=== PATIENT | female | born 1960 | race Caucasian/White ===

== ENCOUNTER 2018-08-23 18:36 | Emergency (ER) | payer OTHER ==
[~2018-08-23] VITALS: Ht 167 cm; Wt 65.7 kg
[2018-08-23 18:50] VITALS: Ht 167 cm; Wt 65.7 kg
[2018-08-23] MEDS ORDERED: SOD CHLORIDE 0.9% 1,000 ML IV STA (21:48)
[2018-08-23 22:24] VITALS: BP 198/120; PULSE 101; RESP 20
--- NOTE | 2018-08-23 22:55 | ERD ---
ER Documentation Chief Complaint Chief Complaint worsening incontinence x months,not on any meds,HTN@triage HPI This is a 57-year-old female with a history of hypertension who presents to the emergency room for evaluation of urinary incontinence. The patient states that she has had urinary incontinence for the past 3 months. The patient denies any fevers, lower back pain, numbness in the lower extremities or any generalized weakness. She states she came to the ER today for evaluation of her incontinence as it is gotten worse. The patient denies any aggravating or relieving factors for her symptoms and denies seeing a urologist in the past. ROS All systems reviewed and are negative except as per history of present illness. Allergies Allergies: Coded Allergies: No Known Allergy (Unverified , 08/23/18) PMhx/Soc Medical and Surgical Hx: pt denies Surgical Hx History of Surgery: No Anesthesia Reaction: No Hx Neurological Disorder: No Hx Respiratory Disorders: No Hx Cardiac Disorders: Yes (HTN ) Hx Psychiatric Problems: No Hx Miscellaneous Medical Probl: Yes (INSOMNIA ) Hx Alcohol Use: No Hx Substance Use: Yes (MARIJUANA TODAY ) Hx Tobacco Use: Yes Smoking Status: Current every day smoker Physical Exam Vitals Vital Signs Date Temp Pulse Resp B/P (MAP) Pulse Ox O2 O2 Flow FiO2 Time Delivery Rate 08/23/18 98.1 101 20 198/120 98 Room Air 22:24 (146) 08/23/18 99.4 121 20 204/103 94 18:50 (136) Physical Exam INITIAL VITAL SIGNS: Reviewed by me GENERAL: The patient is well developed and appropriate for usual state of health in no apparent distress HEENT: Pupils equal, round, and reactive to light. EOMI. There is no scleral icterus. NECK: C-spine is soft and supple, there is no meningismus. There is no c ervical lymphadenopathy. LUNGS: Clear to auscultation bilaterally. There are no rales, wheezes or r honchi. HEART: Regular rate and rhythm, no murmurs, clicks, rubs or gallops. ABDOMEN: Soft, non-tender, non-distended. There are bowel sounds in all four quadrants. No rebound or guarding. EXTREMITIES: There is no peripheral cyanosis or edema. No focal swelling or erythema. NEUROLOGICAL: The patient moves all four extremities with 5/5 strength. Cranial nerves II - XII are intact. Normal gait. Alert and oriented ,no saddle anesthesia SKIN: There is no apparent rash or petechiae. HEME/LYMPHATIC: There is no evidence of excessive bruising or lymphedema. PSYCHIATRIC: The patient does not appear anxious or depressed. Result Diagram: 08/23/18220908/23/182209 Results 24 hrs Laboratory Tests Test 08/23/18 22:10 White Blood Count 7.9 10^3/ul Red Blood Count 4.81 10^6/ul Hemoglobin 15.1 g/dl Hematocrit 44.6 % Mean Corpuscular Volume 92.7 fl Mean Corpuscular Hemoglobin 31.4 pg Mean Corpuscular Hemoglobin Concent 33.9 g/dl Red Cell Distribution Width 12.7 % Platelet Count 372 10^3/UL Mean Platelet Volume 9.0 fl Immature Granulocytes % 0.300 % Neutrophils % 65.7 % Lymphocytes % 23.2 % Monocytes % 7.7 % Eosinophils % 2.5 % Basophils % 0.6 % Nucleated Red Blood Cells % 0.0 /100WBC Immature Granulocytes # 0.020 10^3/ul Neutrophils # 5.2 10^3/ul Lymphocytes # 1.8 10^3/ul Monocytes # 0.6 10^3/ul Eosinophils # 0.2 10^3/ul Basophils # 0.1 10^3/ul Nucleated Red Blood Cells # 0.0 10^3/ul Urine Color YELLOW Urine Clarity CLEAR Urine pH 6.0 Urine Specific [place] 1.014 Urine Ketones NEGATIVE mg/dL Urine Nitrite NEGATIVE mg/dL Urine Bilirubin NEGATIVE mg/dL Urine Urobilinogen NEGATIVE mg/dL Urine Leukocyte Esterase NEGATIVE Donald/ul Urine Hemoglobin NEGATIVE mg/dL Urine Glucose NEGATIVE mg/dL Urine Total Protein NEGATIVE mg/dl Sodium Level 139 mmol/L Potassium Level 4.0 mmol/L Chloride Level 102 mmol/L Carbon Dioxide Level 30 mmol/L Anion Gap 7 Blood Urea Nitrogen 20 mg/dl Creatinine 0.90 mg/dl Est Glomerular Filtrat Rate mL/min > 60 mL/min Glucose Level 106 mg/dl Calcium Level 10.1 mg/dl Total Bilirubin 0.3 mg/dl Direct Bilirubin 0.00 mg/dl Indirect Bilirubin 0.3 mg/dl Aspartate Amino Transf (AST/SGOT) 30 IU/L Alanine Aminotransferase (ALT/SGPT) 22 IU/L Alkaline Phosphatase 101 IU/L Total Protein 7.7 g/dl Albumin 4.5 g/dl Globulin 3.20 g/dl Albumin/Globulin Ratio 1.40 Lipase 55 U/L Current Medications Medications Dose Sig/Devin Start Time Status Last (Trade) Ordered Route PRN Stop Time Admin Dose Reason Admin Sodium 1,000 ml @ Q1H STAT 08/23/18 DC 08/23/18 Chloride 1,000 mls/hr IV 21:48 08/23/18 22:14 22:47 Procedures/MDM This 57-year-old female presents to the emergency room for evaluation of urinary incontinence for the past 3 months. On my exam the patient had no neuro deficits. She was afebrile and had no saddle anesthesia. Lab work is normal, urinalysis reveals no infection. I doubt cauda equina given the chronicity of this patient's symptoms and her lack of neuro deficits. The patient is likely suffering from urinary incontinence and will be discharged home with a p rescription for oxybutynin and will be given a referral for outpatient urology. She was given strict return precautions and does feel comfortable with her plan of care. The patient is hypertensive however she has a history of chronic hypertension and denies any symptoms of chest pain, shortness of breath, blurred vision, headache or nausea at this time Departure Diagnosis: Primary Impression: Urinary incontinence Additional Impression: Hypertension Condition: Stable MALVIN RANGEL DO Aug 23, 2018 22:55
[2018-08-23] MEDS ORDERED: OXYB5TAB7 PO (22:56)
== END 2018-08-23 23:10 | disposition home or self-care (01) ==
LOC: E/R 18:36
DX: R32 Unspecified urinary incontinence (principal); I10 Essential (primary) hypertension; F17.210 Nicotine dependence, cigarettes, uncomplicated
CPT/HCPCS: 80053; 81003; 83690; 85025; J7030; 36415